=== PATIENT | male | born 1960 | race Caucasian/White ===

== ENCOUNTER 2017-10-01 13:45 | Observation (INO) | payer BC ==
[2017-10-01] MEDS ORDERED: Dexamethasone IV* 4 MG/ML 5 ML VIAL (20 MG) IVPB ONE (14:45)
[2017-10-01] MEDS ORDERED: Orphenadrine Citrate IV* 30 MG/ML 2 ML VIAL IV ONE (14:45)
[2017-10-01] MEDS ORDERED: Ketorolac INJ* 30 MG/ML 1 ML VIAL IV PUSH ONE (14:45)
[2017-10-01] MEDS ORDERED: Morphine INJ* 4 MG/ML 1 ML CARPUJECT IV ONE ×3 (14:45→18:22)
[2017-10-01 15:22] LABS: Hematocrit 44 % (42-52); Hemoglobin 14.8 g/dl (14.0-18.0); Mean Corpuscular HGB Conc 34 g/dl (31-36); Mean Corpuscular Hemoglobin 30 pg (27-31); Mean Corpuscular Volume 87 fL (80-94); Mean Platelet Volume 8 um3 (7.4-10.4); Red Blood Count 4.98 10^6/ul (4.0-5.4); Red Cell Distribution Width 13 % (10.5-15); White Blood Count 9.7 10^3/ul (3.5-10.8)
[2017-10-01 15:39] LABS: Albumin 4.5 g/dL (3.2-5.2); BUN/Creatinine Ratio 12.9 (8-20); C Reactive Protein 3.27 mg/L (< 5.00); Calcium 9.7 mg/dL (8.6-10.3); EGFR African American 120.8 (>60); EGFR Non-African American 93.9 (>60); Globulin 2.8 g/dL (2-4); Potassium 3.5 mmol/L (3.5-5.0); Total Bilirubin 1.4 mg/dL (0.2-1.0); Total Protein 7.3 g/dL (6.4-8.9)
--- NOTE | 2017-10-01 15:42 | RAD ---
INDICATION: Low back pain. COMPARISON: Comparison is made with a prior x-ray study of the lumbar spine from November 16, 2015. TECHNIQUE: 3 views of the lumbar spine were obtained including lateral, AP and a coned-down lateral view of the lumbar sacral junction. FINDINGS: There is a mild lumbar scoliosis convex toward the left side. No fracture is seen. There is moderate degenerative disc disease at the L2-L3 level which appears unchanged. IMPRESSION: MODERATE DEGENERATIVE DISC DISEASE.
--- NOTE | 2017-10-01 17:10 | RAD ---
INDICATION: Chronic low back pain. History of degenerative disc disease and osteoarthritis with disc herniations at L3-L4 and L4-L5. COMPARISON: Lumbar spine October 01, 2017; MRI lumbar spine December 15, 2016 TECHNIQUE: Noncontrast axial source images was performed from the thoracolumbar junction to the sacrum. Coronal and and sagittal reformatted images were generated. FINDINGS: Vertebrae: There is no fracture or acute focal bony lesion. There is mild multilevel degenerative spurring and degenerative disc disease (see below) Alignment: The lumbar vertebrae are normally aligned. Central Canal: There is minor narrowing at L2-L3 with mild broad-based circumferential bulging the disc. There is minor facet overgrowth. L3-L4 shows a small left paracentral disc herniation leading to a mild decrease in AP diameter canal. There is no direct nerve root impingement. L4-L5 shows moderate circumferential bulging the disc mildly eccentric to the left. There is mild bilateral foraminal narrowing. L5-S1 shows mild broad-based circumferential bulging the disc. Note that MR imaging is a more sensitive method to evaluate the canal and foramina. Intervertebral disc spaces: The disc spaces are maintained. Soft tissues: The paravertebral soft tissues are normal. Other: None IMPRESSION: MILD TO MODERATE DEGENERATIVE DISEASE DESCRIBED. PLEASE FOR ALSO TO EARLIER MRI REPORT.
[2017-10-01] MEDS ORDERED: Morphine INJ* 4 MG/ML 1 ML CARPUJECT IV PRN (21:07)
[2017-10-01] MEDS ORDERED: Ondansetron INJ* 2 MG/ML VIAL IV PRN (21:07)
[2017-10-01] MEDS ORDERED: Al Hydrox/Mg Hydrox/Simet LIQ* 30 ML UDC PO PRN (21:07)
[2017-10-01] MEDS ORDERED: Magnesium Hydroxide LIQ* 30 ML UDC PO PRN (21:07)
[2017-10-01] MEDS ORDERED: Acetaminophen TAB* 325 MG PO PRN (21:07)
[2017-10-01] MEDS ORDERED: Cyclobenzaprine TAB* 10 MG PO PRN (21:11)
[2017-10-01] MEDS: Heparin VIAL(*) 5000 UNITS/ML VIAL (FIVE THOUSAND) SUBCUT SCH (22:37)
[2017-10-01] MEDS: Senna TAB PO SCH (22:38)
[2017-10-01] MEDS: NS 0.9% 1000 ML* 1,000 ML IV SCH (22:39)
[2017-10-02] MEDS: Ketorolac INJ* 30 MG/ML 1 ML VIAL IV PUSH PRN ×2 (00:48→08:30)
--- NOTE | 2017-10-02 04:09 | HP ---
CC: Dr. Frankie Schumacher * HISTORY AND PHYSICAL: DATE OF ADMISSION: 10/01/17 TIME OF EVALUATION: 1999 PRIMARY CARE PHYSICIAN: Frankie Schumacher MD CHIEF COMPLAINT: Back pain HISTORY OF PRESENT ILLNESS: This is a 56-year-old male with a past medical history of chronic back pain who presented to the emergency room with worsening right lower back pain and right hip pain. The patient states he was doing relatively well with his back pain, and his bilateral hip pain and it was well controlled with physical therapy. He states he was moving boxes and working in his garage and working out in his garden on 09/25/17. He felt something popped then. He then subsequently drove the next day for [place] for an 8-hour car ride, he was okay on this trip, came back on 09/29/17 with another 8-hour car ride. He was getting out of the car frequently to take walking breaks, but his pain dramatically worsened when he got home. He has been taking ibuprofen and Voltaren with no improvement. He has been sleeping on a large body sized barcenas bag on his back with his knees to the ground. He has had to crawl to the bathroom to urinate. He has not had a bowel movement since 09/29/17. He has no urinary or bowel incontinence. He was going to follow up with his primary care physician, but his pain was becoming unbearable and came to the emergency room for further evaluation. The patient had CAT scan imaging. He was given a total of 10 mg of Decadron, 30 mg of ketorolac, 12 mg of morphine and 60 mg of Norflex with some modest improvement. The patient denies any chest pain, no fevers, no shortness of breath, otherwise reminder of the review of systems is negative. The patient was referred to the hospitalist service for intractable back pain. PAST MEDICAL HISTORY: 1. History of chronic low back pain and hip pain. 2. History of obstructive sleep apnea with dental implants. 3. GERD. 4. Seasonal allergies. 5. Hypertension. MEDICATIONS: 1. Flexeril 5 mg-10 mg as needed. 2. Voltaren 75 mg p.o. b.i.d. as needed. 3. Lisinopril 20 mg daily. 4. Ranitidine daily. 5. Ibuprofen as needed. 6. Veramyst spray as needed. 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 He uses a standing desk mostly and takes frequent walks. He lives at home with his Kerry Bonilla who is his health care proxy. He occasionally drinks alcohol and no smoking, or illicit drug use. He is a full code. FAMILY HISTORY: Reviewed and noncontributory. REVIEW OF SYSTEMS: A 14-point review of systems as mentioned in the HPI, pertinent positives and negatives as mentioned in the HPI; otherwise negative. PHYSICAL EXAMINATION VITAL SIGNS: Temperature 99.1, pulse rate 79, respiratory rate 20, oxygen saturation 90% in room air, blood pressure 141/70. GENERAL: The patient is resting on all fours as he cannot get comfortable. HEENT: Head is normocephalic. Pupils equal and reactive. Oropharynx, mucous membranes dry, lips are dry. NECK: supple. No lymphadenopathy. RESPIRATORY: Clear to auscultation. No wheezes, rhonchi or rales. CARDIAC: Regular rate and rhythm. No murmurs, rubs or gallops. ABDOMEN: Some mild distention. Soft, nontender. Normal bowel sounds. EXTREMITIES: The patient with right hip piriformis discomfort with range of motion. No bony palpation tenderness on his lumbar spine, unable to do an assessment with him standing as he was unable to stand. NEUROLOGIC: Alert and oriented x3. No gross focal neurologic deficits. LABORATORY DATA/DIAGNOSTIC STUDIES: White count 9.7, hemoglobin 14.8, hematocrit 44, platelets 286. Sodium 138, potassium 3.5, chloride 104, bicarb 25, BUN 11, creatinine 0.85, total bilirubin 1.4, CRP 3.27. Radiographic Data: Lumbar spine x-ray, shows moderate degenerative disk disease. Lumbar spine CT, [id number] degenerative disk disease. ASSESSMENT: This is 56-year-old male with a past medical history of chronic back pain who presents to the emergency room with worsening back pain in the setting of physical activity on 09/25/17. The patient is with severe debilitating symptoms, unable to ambulate. The pain has modestly improved with significant morphine, concern for herniated disk. PLAN: We will obtain an MRI of the lumbar spine to assess for any potential intervention by Neurosurgery to improve symptoms. We will continue his symptom management with morphine and Toradol as well as Flexeril. We will also put him on a more aggressive bowel regimen. I have placed him on IV fluids as the patient appears dry and has not had much to eat or drink over the past two days due to significant amount of pain. We will also order physical therapy evaluation, place him on short stay. Chronic medical problems: 1. Hypertension, resume his lisinopril. 2. Gastroesophageal reflux disease, I do not have ranitidine on formulary, we will start him on omeprazole. 3. Fluids, electrolyte, nutrition: Place him on a regular diet with IV fluids. 4. DVT prophylaxis: The patient scores moderate risk, placed on heparin subcu t.i.d. 5. Code status: Full code. TIME SPENT: The patient time greater than 65 minutes was spent doing history and physical more than half the time spent in direct patient contact. [id number]/[facility] #: [id number] VIANEY
[2017-10-02] MEDS: NS 0.9% 1000 ML* 1,000 ML IV SCH (05:20)
[2017-10-02] MEDS: Heparin VIAL(*) 5000 UNITS/ML VIAL (FIVE THOUSAND) SUBCUT SCH ×2 (05:36→15:17)
[2017-10-02] MEDS ORDERED: Omeprazole CAP* 20 MG PO SCH (06:00)
[2017-10-02] MEDS: Senna TAB PO SCH (08:30)
[2017-10-02] MEDS ORDERED: Lisinopril TAB* 10 MG PO SCH (09:00)
[2017-10-02] MEDS ORDERED: Docusate CAP* 100 MG PO SCH (09:00)
[2017-10-02] MEDS ORDERED: Influenza VAC *QUAD* 2017-18* 0.5 ML SYRINGE IM ONE (09:00)
--- NOTE | 2017-10-02 09:34 | RAD ---
Indication: Back pain with radiation down the right lower extremity. Image Sequences: Sagittal T1, T2, STIR, axial T1 and T2-weighted images of the lumbar spine were obtained. The vertebral bodies appear normal in height. Normal bone marrow signal is noted. At L5-S1, there is degenerative disc disease noted. Broad-based protrusion flattens the thecal sac. No central or foraminal stenosis is noted. At L4-5, there is minimal broad-based protrusion flattening the thecal sac. No central or foraminal stenosis is noted. Moderate facet hypertrophy is noted. At L3-4, there is degenerative disc disease noted. Moderate-sized central focal protrusion is noted indenting the thecal sac. There is an extruded disc fragment which has migrated inferiorly and appears to impinge upon the right descending L4 nerve root at this level. The disc appears to be in the lateral recess on the right. At L2-3, degenerative disc disease is noted. Minimal broad-based protrusion is noted. IMPRESSION: 1. Central disc protrusion indenting the thecal sac at L3-4. There is a sequestered fragment of disc that has migrated inferiorly into the right which appears to impinge upon the right descending nerve root at L3-4. 2. Degenerative disc disease at L4-5 and L5-S1.
[2017-10-02 13:09] VITALS: BP 133/74
[2017-10-02] MEDS ORDERED: oxyCODONE TAB* 5 MG TAB ONE (13:38)
[2017-10-02] MEDS ORDERED: oxyCODONE TAB* 5 MG TAB PO ONE (13:40)
--- NOTE | 2017-10-03 00:43 | DS ---
CC: Frankie Schumacher MD * DISCHARGE SUMMARY: DATE OF ADMISSION: 10/01/17 DATE OF DISCHARGE: 10/02/17 PRIMARY CARE PHYSICIAN: Frankie Schumacher MD PRIMARY DIAGNOSES: 1. Worsening disk protrusion L3-L4 with small piece of small sequestered fragments. 2. Acute pain exacerbation. SECONDARY DIAGNOSES: Include: 1. Chronic lower back pain and hip pain. 2. Obstructive sleep apnea. 3. Gastroesophageal reflux disease. 4. Hypertension. MEDICATIONS AT DISCHARGE: Include: 1. Cyclobenzaprine 5 to 10 mg daily as needed. 2. Diclofenac 75 mg twice daily as needed. 3. Prilosec 20 mg daily. 4. Lisinopril 20 mg daily. 5. Oxycodone 5 mg every 4 hours as needed for pain for 2 days. 6. Acetaminophen 650 mg every 4 hours as needed for pain. PERTINENT IMAGING STUDIES: MRI of the L-spine was performed, read was discussed with Radiology, interpreted as continued disk protrusion of L3-L4 with a new piece of small sequestered fragments impinging on nerve roots on the right. HISTORY OF PRESENT ILLNESS AND HOSPITAL COURSE: This is a 56-year-old man with past medical history as outlined in the history of present illness on day of admission presented to the hospital with worsening right lower back pain that developed after moving boxes and working in his garage on 09/25/17 after hearing something "pop." Subsequently, he had a long car ride but the pain continues to worsen. When seen in the emergency room, his pain was uncontrolled with high doses of narcotics. He was admitted to the hospital and given 1 dose of high dose steroids, 10 mg of Decadron. When seen the next morning, his pain had largely improved. He is neurovascularly intact. He did have positive straight leg test on the right and ipsilateral straight leg test on the left. He had intact sensation reflexes and strength, although his right lower leg strength was 4/5 limited by pain. He had no bladder retention or incontinence. No bowel incontinence. He felt improved since day of discharge, although his pain continued. In the setting of the sequestered disk, he likely has a new exacerbation of pain secondary to this problem. It was expected that this would be desiccated over the next 6 weeks without need for acute intervention at this time in the absence of neurologic compromise. However, the patient was counseled at length, should he develop any neurological compromise including weakness, numbness, bladder or bowel incontinence, he should emergently return to the emergency room. Also counseled that expeditious followup with his primary care provider was important. Reasons to return to the hospital including but limited to recurrent or worsening symptoms, worsening pain, bladder or bowel incontinence, weakness or numbness or tingling in lower extremities discussed at length, the patient acknowledged understanding. TIME SPENT: Greater than 45 minutes was spent on discharging the patient; greater than half was spent [id number] with the patient. [id number]/[facility] #: [id number] VIANEY
--- NOTE | 2017-10-05 12:34 | ED ---
Michelle Blas Thomas, scribed for Aditya Green MD on 10/01/17 at 1447 . Back Pain - HPI Summary HPI Summary: The pt is a 56 y/o M presenting to the ED c/o lower back pain that began six days ago. The pain has progressively worsened since onset, and the pain significantly worsened two days ago. The pain radiates down his right buttock and custodial down his right thigh. The pain is constant. The pain is rated 9/10. The pain is aggravated by ambulation and positioning. The pain is alleviated by lying on his abdomen. 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 Patient denies bladder or bowel incontinence. PMHx includes chronic back pain. - History of Current Complaint Chief Complaint: EDBackInjuryPain Stated Complaint: BACK PAIN Time Seen by Provider: 10/01/17 14:29 Hx Obtained From: Patient Onset/Duration: Lasting Days - 6, Still Present, Worse Since - 2 days ago Onset/Duration: Still Present Timing: Constant Back Pain Location: Is Discrete @ - lower Severity Initially: Mild Severity Currently: Severe Pain Intensity: 9 Pain Scale Used: 0-10 Numeric Aggravating Symptom(s): Other - Ambulation, positioning Alleviating Symptom(s): Other - Lying on his abdomen Associated Signs And Symptoms: Negative: Bladder Incontinence, Bowel Incontinence - Allergies/Home Medications Allergies/Adverse Reactions: Allergies Allergy/AdvReac Type Severity Reaction Status Date / Time environmental Allergy Unknown Uncoded 12/13/16 14:39 Reaction Details NKDA Allergy Unknown Uncoded 12/13/16 14:39 Reaction Details seasonal Allergy Unknown Uncoded 12/13/16 14:39 Reaction Details Home Medications: Home Medications Cyclobenzaprine TAB* [Flexeril 10 MG TAB*] 5 - 10 mg PO DAILY PRN 10/01/17 [ History Confirmed 10/01/17] Diclofenac Sodium EC TAB* [Voltaren EC TAB*] 75 mg PO BID PRN 10/01/17 [History Confirmed 10/01/17] Omeprazole CAP* [Prilosec CAP* 20 MG] 20 mg PO DAILY 10/01/17 [History Confirmed 10/01/17] PMH/Surg Hx/FS Hx/Imm Hx Previously Healthy: No Endocrine/Hematology History: Denies: Hx Diabetes Cardiovascular History: Reports: Hx Hypercholesterolemia, Hx Hypertension Denies: Hx Pacemaker/ICD Respiratory History: Reports: Hx Seasonal Allergies, Hx Sleep Apnea - compliance issues;switched to dental device History: Denies: Hx Renal Disease Musculoskeletal History: Reports: Hx Back Problems - back pain, spasms Sensory History: Denies: Hx Hearing Aid Psychiatric History: Denies: Hx Panic Disorder - Surgical History Surgery Procedure, Year, and Place: None Infectious Disease History: No Infectious Disease History: Denies: Traveled Outside the [place] in Last 30 Days - Family History Known Family History: Positive: Hypertension - Social History Alcohol Use: Occasionally Hx Substance Use: No Substance Use Type: Reports: None Hx Tobacco Use: No Smoking Status (MU): Never Smoked Tobacco Have You Smoked in the Last Year: No Review of Systems Negative: Other - bowel incontinence Negative: incontinence Positive: Other - Low back pain All Other Systems Reviewed And Are Negative: Yes Physical Exam - Summary Physical Exam Summary: VITAL SIGNS: Reviewed. GENERAL: Patient is a well-developed and nourished male who is lying comfortable in the stretcher. Patient is not in any acute respiratory distress. HEAD AND FACE: No signs of trauma. No ecchymosis, hematomas or skull depressions. No sinus tenderness. EYES: PERRLA, EOMI x 2, No injected conjunctiva, no nystagmus. EARS: Hearing grossly intact. Ear canals and tympanic membranes are within normal limits. MOUTH: Oropharynx within normal limits. NECK: Supple, trachea is midline, no adenopathy, no JVD, no carotid bruit, no c- spine tenderness, neck with full ROM. CHEST: Symmetric, no tenderness at palpation LUNGS: Clear to auscultation bilaterally. No wheezing or crackles. CVS: Regular rate and rhythm, S1 and S2 present, no murmurs or gallops appreciated. ABDOMEN: Soft, non-tender. No signs of distention. No rebound no guarding, and no masses palpated. Bowel sounds are normal. BACK: There is paraspinal tenderness along the lumbar spine. There is positive tenderness in the right gluteus. EXTREMITIES: FROM in all major joints, no edema, no cyanosis or clubbing. NEURO: Alert and oriented x 3. No acute neurological deficits. Speech is normal and follows commands. SKIN: Dry and warm Triage Information Reviewed: Yes Vital Signs On Initial Exam: Initial Vitals Temp Pulse Resp BP Pulse Ox 99.2 F 78 20 159/84 96 11/27/17 13:57 10/01/17 13:57 10/01/17 13:57 10/01/17 13:57 10/01/17 13:57 Vital Signs Reviewed: Yes - [place] Coma Scale Coma Scale Total: 15 Diagnostics - Vital Signs Vital Signs Temp Pulse Resp BP Pulse Ox 10/01/17 13:57 99.2 F 78 20 159/84 96 - Laboratory Result Diagrams: 10/01/17 15:00 10/01/17 15:00 Lab Statement: Any lab studies that have been ordered have been reviewed, and results considered in the medical decision making process. - Radiology XR L-Spine Xray Interpretation: No Acute Changes - MODERATE DEGENERATIVE DISC DISEASE. ED physician has reviewed this report and agrees. Radiology Interpretation Completed By: Radiologist - CT CT L-Spine CT Interpretation: No Acute Changes - MILD TO MODERATE DEGENERATIVE DISEASE DESCRIBED. PLEASE FOR ALSO TO EARLIER MRI REPORT. ED physician has reviewed this report and agrees. CT Interpretation Completed By: Radiologist Back Pain Course/Dx - Course Assessment/Plan: The pt is a 56 y/o M presenting to the ED c/o lower back pain that began six days ago. The pain has progressively worsened since onset, and the pain significantly worsened two days ago. The pain radiates down his right buttock and custodial down his right thigh. The pain is constant. The pain is rated 9/10. The pain is aggravated by ambulation and positioning. The pain is alleviated by lying on his abdomen. 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 Patient denies bladder or bowel incontinence. PMHx includes chronic back pain. Test results are without significant abnormalities. The XR L-Spine shows MODERATE DEGENERATIVE DISC DISEASE. In the ED course, the patient was given Norflex, morphine, Decadrol, and Toradol for the pain. The patient continues to have pain; therefore, I decided to do a CT L-Spine which shows no significant abnormalities except DDD. The patient was given another dose of morphine; however, the patient is unable to ambulate and still has severe pain. Therefore, I discussed the case with Dr. Rivero who will accept the patient for admission. The patient is hemodynamically stable and alert and oriented x3. - Diagnoses Provider Diagnoses: Intractable back pain - Provider Notifications Discussed Care Of Patient With: Geeta Rivero Time Discussed With Above Provider: 18:20 Instructed by Provider To: Other - Dr. Rivero, hospitalist, will admit the patient. Discharge - Discharge Plan Condition: Fair Disposition: ADMITTED TO [facility] Referrals: Frankie Schumacher MD [Primary Care Provider] - The documentation as recorded by the Michelle vargas Thomas accurately reflects the service I personally performed and the decisions made by me, Aditya Green MD.
== END 2017-10-02 16:48 | disposition home or self-care (01) ==
LOC: ED 13:45 → MED 21:07 → SSU 22:11
PROVIDERS: ADMIT Pediatrics; ATTEND Internal Medicine
DX: M51.26 Other intervertebral disc displacement, lumbar region (principal); M25.551 Pain in right hip; G47.33 Obstructive sleep apnea (adult) (pediatric); I10 Essential (primary) hypertension; K21.9 Gastro-esophageal reflux disease without esophagitis; Z79.899 Other long term (current) drug therapy; M51.36 Other intervertebral disc degeneration, lumbar region; Z23 Encounter for immunization
CPT/HCPCS: 36415; 72100; 72131; 72148; 80053; 85025; 86140; 90471; 90686; 96372; 96374; 96375; 96376; 99284; A9270-GY; G0008; G0378; J1100; J1644; J1885; J2270; J2360